=== PATIENT | female | born 1955 | race Caucasian/White ===

== ENCOUNTER 2017-10-29 04:31 | Inpatient (IN) | payer BC, OTHER ==
[~2017-10-29] VITALS: Ht 154.9 cm; Wt 58.5 kg
--- NOTE | 2017-10-29 04:50 | NUR ---
Dr. Camacho at bedside for MSE.
[2017-10-29] MEDS ORDERED: ONDANSETRON 4 MG/2 ML VIAL ONE ×2 (04:59→06:33)
[2017-10-29] MEDS ORDERED: HYDROMORPHONE 2 MG/1 ML DISP.SYRIN ONE ×2 (04:59→09:12)
[2017-10-29] MEDS ORDERED: ONDANSETRON 4 MG/2 ML VIAL IM ONE (05:00)
[2017-10-29] MEDS ORDERED: HYDROMORPHONE 1 MG/1 ML DISP.SYRIN IM ONE (05:00)
[2017-10-29] MEDS ORDERED: KETOROLAC TROMETHAMINE 15 MG INJ IVP ONE (05:45)
[2017-10-29] MEDS ORDERED: KETOROLAC TROMETHAMINE 15 MG INJ ONE (05:49)
--- NOTE | 2017-10-29 05:52 | NUR ---
Pt's desats to 89% on room air, placed patient on 2L/min O2 via nasal cannula.
[2017-10-29 05:56] LABS: BASOPHILS # (AUTO) 0.1 K/uL (0.0-8.0); BASOPHILS % (AUTO) 1.2 % (0.0-2.0); EOSINOPHILS # (AUTO) 0.3 K/uL (0.0-0.7); EOSINOPHILS % (AUTO) 2.9 % (0.0-7.0); HEMOGLOBIN 14.5 g/dL (10.9-14.3); LYMPHOCYTES # (AUTO) 2.7 K/uL (20.0-40.0); LYMPHOCYTES % (AUTO) 25.9 % (20.5-51.5); MEAN CORPUSCULAR HEMOGLOBIN 31.6 uug (24.7-32.8); MEAN CORPUSCULAR HGB CONC 35 g/dL (32.3-35.6); MEAN CORPUSCULAR VOLUME 91.5 fL (75.5-95.3); MONOCYTES # (AUTO) 0.5 K/uL (2.0-10.0); MONOCYTES % (AUTO) 4.9 % (0.0-11.0); NEUTROPHILS # (AUTO) 6.8 K/uL (1.8-8.9); NEUTROPHILS % (AUTO) 65.1 % (38.5-71.5); PLATELET COUNT (AUTO) 185 K/uL (179-408); RED BLOOD CELL COUNT(AUTO) 4.59 MIL/uL (3.63-4.92); WHITE BLOOD COUNT (AUTO) 10.5 K/uL (3.8-11.8)
[2017-10-29 06:04] LABS: CREATININE 0.9 mg/dL (0.6-1.3); POTASSIUM 3.3 mmol/L (3.5-5.1)
[2017-10-29] MEDS ORDERED: IV NORMAL SALINE 1000 ML BAG IV ONE (06:15)
[2017-10-29 06:18] LABS: BILIRUBIN,DIRECT 0.1 mg/dL (0.0-0.2); BILIRUBIN,TOTAL 0.6 mg/dL (0.2-1.0); TOTAL PROTEIN, SERUM 6.7 g/dL (6.4-8.2)
[2017-10-29] MEDS ORDERED: ONDANSETRON 4 MG/2 ML VIAL IV ONE (06:30)
[2017-10-29] MEDS ORDERED: MORPHINE SULFATE 4 MG/1 ML DISP.SYRIN IV ONE ×2 (06:30→11:30)
--- NOTE | 2017-10-29 06:30 | NUR ---
Pt states pain is coming back. MD notified.
[2017-10-29] MEDS ORDERED: MORPHINE SULFATE 4 MG/1 ML DISP.SYRIN ONE (06:33)
[2017-10-29 06:50] LABS: *BILIRUBIN,URIN NEGATIVE (NEGATIVE); *BLOOD, URINE Trace-intact (NEGATIVE); *CLARITY,URINE CLEAR (CLEAR); *COLOR,URINE YELLOW (YELLOW); *KETONES,URINE NEGATIVE (NEGATIVE); *PROTEIN,URINE NEGATIVE (NEGATIVE); *UROBILINOGEN,URINE 0.2 E.U./dl (NORMAL); LEUKOCYTE ESTERASE ,URINE NEGATIVE (NEGATIVE); NITRITE, URINE NEGATIVE (NEGATIVE); UGLUCOSE NEGATIVE (NEGATIVE)
--- NOTE | 2017-10-29 06:54 | NUR ---
SBAR report given to Gaudencio PRINGLE.
[2017-10-29 06:56] LABS: BACTERIA,URINE FEW /HPF (NONE SEEN); RBC,URINE 0-3 /HPF (0-3); WBC,URINE 0-3 /HPF (0-3)
[2017-10-29 06:57] LABS: SQUAMOUS EPITHELIAL CELL,UR MODERATE /HPF (NONE SEEN)
[2017-10-29] MEDS ORDERED: MAGNESIUM HYDROXIDE 30 ML LIQUID UDC PO PRN (09:00)
[2017-10-29] MEDS ORDERED: ONDANSETRON 4 MG/2 ML VIAL IV PRN (09:00)
[2017-10-29] MEDS ORDERED: HYDROMORPHONE 1 MG/1 ML DISP.SYRIN IV ONE (09:00)
[2017-10-29] MEDS ORDERED: ACETAMINOPHEN 325 MG TABLET PO PRN (09:00)
[2017-10-29] MEDS ORDERED: MORPHINE SULFATE 2 MG/1 ML DISP.SYRIN IV PRN (09:00)
[2017-10-29] MEDS ORDERED: Z GUARD REMEDY PASTE 57 GM TUBE TOP PRN (09:00)
--- NOTE | 2017-10-29 09:00 | NUR ---
PATIENT COMPLAINED OF SEVERE BACK PAIN, DR KAUR INFORMED PAIN MEDICATION GIVEN.
[2017-10-29] MEDS: PANTOPRAZOLE SODIUM 40 MG VIAL IV SCH (09:13)
[2017-10-29] MEDS ORDERED: PANTOPRAZOLE SODIUM 40 MG VIAL ONE (09:16)
--- NOTE | 2017-10-29 10:13 | NUR ---
FULL REPORT GIVEN TO YARY DUDLEY AND PT TRANSFERED TO [facility] VIA WHEEL CHAIR.
[2017-10-29 10:40] VITALS: BP 120/69
--- NOTE | 2017-10-29 10:42 | NUR ---
PATIENT RECEIVED ALL BELONGINGS AND SENT TO [facility].SURGICAL UNIT.
[2017-10-29] MEDS: MORPHINE SULFATE 4 MG/1 ML DISP.SYRIN IV PRN ×2 (15:05→22:31)
[2017-10-29] MEDS: IV NS 1000 ML 1,000 ML IV PRN (15:17)
[2017-10-29] MEDS: HYDROCODONE/APAP 5-325MG TABLET PO PRN ×2 (17:11→21:26)
[2017-10-29 20:00] VITALS: BP 111/57
[2017-10-29] MEDS: ONDANSETRON 4 MG/2 ML VIAL IV PRN (20:34)
--- NOTE | 2017-10-30 00:54 | NUR ---
PT REQUESTING PAIN MEDICATION FOR BACK PAIN ,FACIAL GRIMACE NOTED, ACTIVE LISTENING PROVIDED, INFORMED PT THAT INJECTABLE PAIN MED NOT DUE YET, AGREED TO WAIT FOR PRIMARY NURSE TO COME.
[2017-10-30] MEDS: HYDROCODONE/APAP 5-325MG TABLET PO PRN (01:01)
--- NOTE | 2017-10-30 01:03 | NUR ---
Pt in extreme pain, crying and moaning in bed, unable to stay asleep. Patient requesting to call doctor for change or pain medication or increase in dosage. Morphine is effective for about 2-3 hours. I'm giving [employer] in between but its only effective less than 1 hour.
--- NOTE | 2017-10-30 01:35 | NUR ---
On-call hospitalist Grant Khan paged. New orders for Dilaudid 1mg IV q4h PRN severe pain, [place] 10/325mg po q4h PRN mod-severe pain. Orders read back and entered into [employer].
[2017-10-30] MEDS ORDERED: HYDROMORPHONE 1 MG/1 ML DISP.SYRIN IV PRN (01:45)
[2017-10-30] MEDS: HYDROMORPHONE 2 MG/1 ML DISP.SYRIN IV PRN ×5 (01:58→21:55)
--- NOTE | 2017-10-30 04:30 | NUR ---
Patient still asleep after Dilaudid administered. Has not called for pain medication. No s/s distress noted.
[2017-10-30 05:22] VITALS: BP 111/57
[2017-10-30 06:42] LABS: CREATININE 0.9 mg/dL (0.6-1.3); MAGNESIUM 1.7 mg/dL (1.8-2.4); PHOSPHOROUS 4.5 mg/dL (2.5-4.9); POTASSIUM 4.4 mmol/L (3.5-5.1)
[2017-10-30] MEDS: ONDANSETRON 4 MG/2 ML VIAL IV PRN ×2 (06:56→16:50)
[2017-10-30 07:15] LABS: BASOPHILS % (AUTO) 0.5 % (0.0-2.0); EOSINOPHILS # (AUTO) 0.4 K/uL (0.0-0.7); EOSINOPHILS % (AUTO) 4.9 % (0.0-7.0); HEMATOCRIT 39.2 % (31.2-41.9); HEMOGLOBIN 13.5 g/dL (10.9-14.3); LYMPHOCYTES # (AUTO) 3.1 K/uL (20.0-40.0); LYMPHOCYTES % (AUTO) 41.5 % (20.5-51.5); MEAN CORPUSCULAR HGB CONC 35 g/dL (32.3-35.6); MEAN CORPUSCULAR VOLUME 92.5 fL (75.5-95.3); MONOCYTES # (AUTO) 0.4 K/uL (2.0-10.0); MONOCYTES % (AUTO) 5.8 % (0.0-11.0); NEUTROPHILS # (AUTO) 3.5 K/uL (1.8-8.9); NEUTROPHILS % (AUTO) 47.3 % (38.5-71.5); PLATELET COUNT (AUTO) 195 K/uL (179-408); RED BLOOD CELL COUNT(AUTO) 4.23 MIL/uL (3.63-4.92); WHITE BLOOD COUNT (AUTO) 7.4 K/uL (3.8-11.8)
[2017-10-30] MEDS: PANTOPRAZOLE SODIUM 40 MG VIAL IV SCH (08:36)
[2017-10-30] MEDS: HYDROCODONE/APAP 10-325 MG TABLET PO PRN (08:46)
[2017-10-30] MEDS ORDERED: IV NORMAL SALINE 1000 ML BAG IV ONE (10:15)
[2017-10-30] MEDS ORDERED: CARISOPRODOL 350 MG TABLET PO ONE (11:30)
[2017-10-30 11:32] VITALS: BP 131/71
[2017-10-30] MEDS ORDERED: DEXAMETHASONE SOD PHOSPHATE 4 MG INJ IV ONE (12:00)
[2017-10-30] MEDS ORDERED: MAGNESIUM OXIDE 400 MG TABLET PO ONE (12:15)
[2017-10-30 15:38] VITALS: BP 132/69
--- NOTE | 2017-10-30 19:30 | NUR ---
Received patient from day shift nurse. Patient currently lying in bed with family at the bedside. No acute distress noted. Vital signs within range at start of shift. Pertinent assessment completed. A/Ox4 & able to make all her needs known. Noted with Left AC 20G IV running with NS at 70cc/hr. No s/s of infiltration or swelling at the IV site. Patient currently denies pain. States that the Dilaudid IV is helping her chronic back pain. Bed in low position & locked. Call light within reach. Will continue to monitor through shift.
[2017-10-30 20:00] VITALS: BP 96/66
[2017-10-30] MEDS: DEXAMETHASONE SOD PHOSPHATE 4 MG INJ IV SCH (21:07)
[2017-10-30] MEDS: CARISOPRODOL 350 MG TABLET PO PRN (23:27)
[2017-10-31] MEDS: HYDROCODONE/APAP 10-325 MG TABLET PO PRN ×2 (00:34→08:52)
[2017-10-31] MEDS: HYDROMORPHONE 2 MG/1 ML DISP.SYRIN IV PRN ×4 (02:02→13:52)
[2017-10-31 04:03] VITALS: BP 107/56
[2017-10-31] MEDS: IV NS 1000 ML 1,000 ML IV PRN (04:47)
--- NOTE | 2017-10-31 06:25 | NUR ---
Patient had moments of extreme lower back pain 10/10 through the night. Pain management provided per MD order. Patient slept intermittently through night but does not feel rested once pain begins to start. IV site changed from Left AC to Right hand. Tolerated well. IV site is patent & running with NS. All needs attended to promptly. Call light within reach of patient. Will endorse to oncoming shift.
[2017-10-31 06:26] LABS: CREATININE 0.8 mg/dL (0.6-1.3); MAGNESIUM 1.9 mg/dL (1.8-2.4)
[2017-10-31] MEDS ORDERED: PANTOPRAZOLE SODIUM 40 MG TABLET.DR PO SCH (07:00)
[2017-10-31] MEDS: DEXAMETHASONE SOD PHOSPHATE 4 MG INJ IV SCH (08:51)
[2017-10-31] MEDS: CARISOPRODOL 350 MG TABLET PO PRN (08:52)
[2017-10-31 11:02] VITALS: BP 134/73
--- NOTE | 2017-10-31 14:35 | NUR ---
PT. EVALUATED FOR SAFETY--AMBULATING WITHOUT DIFFICULTY--STEADY. REVIEWED TEACHING ON SAFETY PRECAUTIONS WHILE ON PAIN MEDS. AND MUSCLE RELAXANTS. HOME MEDS REVIEWED WITH PT. BY PHARMACIST. IV D/C'D. DISCHARGED TO VIA W/C TO CAR.
== END 2017-10-31 14:35 | disposition home or self-care (01) | DRG 552 ==
LOC: ER 04:31 → MED 10:42
PROVIDERS: ADMIT Nurse Practitioner Acute Care; ATTEND Nurse Practitioner Acute Care
DX: M51.16 Intervertebral disc disorders with radiculopathy, lumbar region (principal); M47.26 Other spondylosis with radiculopathy, lumbar region; G89.4 Chronic pain syndrome; G43.909 Migraine, unspecified, not intractable, without status migrainosus; R20.8 Other disturbances of skin sensation
CPT/HCPCS: 36415; 71045; 83735; 84100; 85025; 85730; 87086; 93005; A4663; C9113; J1100; J1170; J1885; J2270; J2405; J7030

== ENCOUNTER → 2024-09-26 | Emergency (ER) | payer MEDICARE, BC ==
[~2024-09-26] VITALS: Ht 154.9 cm; Wt 56.2 kg
[~2024-09-26] MED LIST: AMOX500C2 PO; AMOXicillin 250 MG CAPSULE ONE
[2024-09-26] MEDS: IV NORMAL SALINE 1000 ML BAG IV ONE (18:55)
[2024-09-26 19:50] LABS: BASOPHILS # (AUTO) 0.1 K/UL (0.0-0.2); BASOPHILS % (AUTO) 0.4 % (0.0-2.0); EOSINOPHILS # (AUTO) 0.2 K/uL (0.0-0.7); EOSINOPHILS % (AUTO) 1.5 % (0.0-7.0); HEMATOCRIT 38.3 % (31.2-41.9); HEMOGLOBIN 12.9 g/dL (10.9-14.3); LYMPHOCYTES # (AUTO) 3.1 K/uL (0.8-4.8); LYMPHOCYTES % (AUTO) 24.4 % (20.5-51.5); MEAN CORPUSCULAR HEMOGLOBIN 30.4 uug (24.7-32.8); MEAN CORPUSCULAR HGB CONC 34 g/dL (32.3-35.6); MEAN CORPUSCULAR VOLUME 90.3 fL (75.5-95.3); MONOCYTES # (AUTO) 0.7 K/uL (0.1-1.30); MONOCYTES % (AUTO) 5.2 % (0.0-11.0); NEUTROPHILS # (AUTO) 8.7 K/uL (1.8-8.9); NEUTROPHILS % (AUTO) 68.5 % (38.5-71.5); PLATELET COUNT (AUTO) 207 K/uL (179-408); RED BLOOD CELL COUNT(AUTO) 4.24 MIL/uL (3.63-4.92); RED CELL DISTRIBUTION WIDTH 14.2 % (12.3-17.7); WHITE BLOOD COUNT (AUTO) 12.7 K/uL (3.8-11.8)
[2024-09-26 19:55] LABS: DIFFERENTIAL COMMENT 1
[2024-09-26 20:00] LABS: CALCIUM 8.6 mg/dL (8.5-10.1); CREATININE 0.9 mg/dL (0.6-1.3); POTASSIUM 4.1 mmol/L (3.5-5.1)
[2024-09-26 20:12] LABS: ALBUMIN 3.1 g/dL (3.4-5.0); BILIRUBIN,DIRECT 0.1 mg/dL (0.0-0.2); BILIRUBIN,TOTAL 0.4 mg/dL (0.2-1.0); TOTAL PROTEIN, SERUM 6.8 g/dL (6.4-8.2)
[2024-09-26 20:58] LABS: *BILIRUBIN,URIN NEGATIVE (NEGATIVE); *BLOOD, URINE NEGATIVE (NEGATIVE); *CLARITY,URINE CLEAR (CLEAR); *COLOR,URINE YELLOW (YELLOW); *KETONES,URINE NEGATIVE (NEGATIVE); *PROTEIN,URINE NEGATIVE (NEGATIVE); *UROBILINOGEN,URINE 0.2 E.U./dl (NORMAL); LEUKOCYTE ESTERASE ,URINE NEGATIVE (NEGATIVE); NITRITE, URINE NEGATIVE (NEGATIVE); UGLUCOSE NEGATIVE (NEGATIVE)
[2024-09-26] MEDS: AMOXicillin 250 MG CAPSULE PO ONE (21:51)
[2024-09-26 23:03] VITALS: BP 112/70; TEMP 98.2; O2SAT 100
== END | disposition home or self-care (01) ==
LOC: ER 18:40
DX: R42 Dizziness and giddiness (principal); R55 Syncope and collapse; R51.9 Headache, unspecified; R07.9 Chest pain, unspecified; F17.200 Nicotine dependence, unspecified, uncomplicated; M19.90 Unspecified osteoarthritis, unspecified site; Z86.79 Personal history of other diseases of the circulatory system; Z87.19 Personal history of other diseases of the digestive system; Z87.39 Personal history of other diseases of the musculoskeletal system and connective tissue; Z88.8 Allergy status to other drugs, medicaments and biological substances; Z79.899 Other long term (current) drug therapy
CPT/HCPCS: 99285; 96360; 70450; 71045; 80076; 80048; 81003; 83880; 85025; 84145; 85730; 87040 ×2; 87086; 84484; 36415; 93005; 83605; J7040; A4606; A4663

== ENCOUNTER 2024-11-09 19:56 | Emergency (ER) | payer MEDICARE, BC ==
[~2024-11-09] VITALS: Ht 154.9 cm; Wt 49.0 kg
[~2024-11-09 19:56] MED LIST changes: -AMOXicillin 250 MG CAPSULE ONE
[2024-11-09 20:48] LABS: PLATELET COUNT (AUTO) 265 K/uL (179-408); RED BLOOD CELL COUNT(AUTO) 4.77 MIL/uL (3.63-4.92); RED CELL DISTRIBUTION WIDTH 14.1 % (12.3-17.7); WHITE BLOOD COUNT (AUTO) 14.0 K/uL (3.8-11.8)
[2024-11-09] MEDS: IV NS 1000 ML 1,000 ML IV ONE (21:02)
[2024-11-09] MEDS ORDERED: KETOROLAC TROMETHAMINE 30 MG INJ ONE ×2 (21:03→23:36)
[2024-11-09] MEDS: KETOROLAC TROMETHAMINE 30 MG INJ IVP ONE ×2 (21:05→23:37)
[2024-11-09 21:08] LABS: ASPARTATE AMINOTRANSFERASE 16.0 U/L (15-37); CREATININE 0.8 mg/dL (0.6-1.3); SODIUM SERUM 139.0 mmol/L (136-145); TOTAL PROTEIN, SERUM 8.0 g/dL (6.4-8.2); UREA NITROGEN, BLOOD 10.0 mg/dL (7-18)
[2024-11-09] MEDS ORDERED: MORPHINE SULFATE 2 MG/1 ML DISP.SYRIN ONE (21:13)
[2024-11-09] MEDS ORDERED: ONDANSETRON 4 MG/2 ML VIAL ONE (21:13)
[2024-11-09] MEDS ORDERED: ACETAMINOPHEN 650 MG/20.3 ML LIQUID UDC ONE (21:14)
[2024-11-09] MEDS: MORPHINE SULFATE 2 MG/1 ML DISP.SYRIN IV ONE (21:20)
[2024-11-09] MEDS: ONDANSETRON 4 MG/2 ML VIAL IV ONE (21:20)
[2024-11-09] MEDS: ACETAMINOPHEN 650 MG/20.3 ML LIQUID UDC PO ONE (21:21)
[2024-11-09 22:20] VITALS: TEMP 99.3
[2024-11-09 23:44] LABS: *BILIRUBIN,URIN NEGATIVE (NEGATIVE); *CLARITY,URINE CLEAR (CLEAR); *COLOR,URINE YELLOW (YELLOW); *KETONES,URINE NEGATIVE (NEGATIVE); *PROTEIN,URINE NEGATIVE (NEGATIVE); *UROBILINOGEN,URINE 0.2 E.U./dl (NORMAL); LEUKOCYTE ESTERASE ,URINE NEGATIVE (NEGATIVE); NITRITE, URINE NEGATIVE (NEGATIVE); UGLUCOSE NEGATIVE (NEGATIVE)
[2024-11-09 23:46] LABS: *BLOOD, URINE TRACE (NEGATIVE)
[2024-11-09 23:50] LABS: SQUAMOUS EPITHELIAL CELL,UR MODERATE /HPF (NONE SEEN)
[2024-11-10] MEDS: IV NS 1000 ML 1,000 ML IV ONE (00:37)
[2024-11-10 00:48] VITALS: BP 89/60
[2024-11-10 01:57] VITALS: BP 89/60; O2SAT 95
== END 2024-11-10 00:55 | disposition left against medical advice (07) ==
LOC: ER 20:06
DX: R50.9 Fever, unspecified (principal); I95.9 Hypotension, unspecified; R00.0 Tachycardia, unspecified; F17.200 Nicotine dependence, unspecified, uncomplicated; Z86.69 Personal history of other diseases of the nervous system and sense organs; Z87.09 Personal history of other diseases of the respiratory system; Z87.39 Personal history of other diseases of the musculoskeletal system and connective tissue; Z88.8 Allergy status to other drugs, medicaments and biological substances; Z20.822 Contact with and (suspected) exposure to COVID-19
CPT/HCPCS: 99285; 96374; 96375; 71045; 96361; 87426; 87804 ×2; 80076; 80048; 81001; 85025; 84145; 85730; 86403; 87040 ×2; 87086; 36415; 93005; 96376; 83605; 87070; J1885 ×2; J2405; J2270; J7040 ×2; A4606; A4663